=== PATIENT | male | born 1955 ===

== ENCOUNTER 2019-08-13 07:20 | Emergency (ER) | payer OTHER ==
[~2019-08-13] VITALS: Ht 182.9 cm; Wt 90.7 kg
[~2019-08-13 07:20] MED LIST: COUMADIN4 MG; DIOVAN160 M1; DULCOLAX5 MG PO; LIPITOR20 MG
== END 2019-08-13 13:58 | disposition home or self-care (01) ==
LOC: ER 07:20
DX: K52.89 Other specified noninfective gastroenteritis and colitis (principal)